=== PATIENT | female | born 1960 | race Caucasian/White ===

== ENCOUNTER 2020-03-29 18:20 | Outpatient (REF) | payer OTHER, SELFPAY ==
[2020-03-29 18:40] LABS: Estmated Average Glucose 209; Hemoglobin A1C 8.9 % (4.0-6.0)
[2020-03-29 18:46] LABS: Chol HDL Ratio 7.18 mg/dL (0.0-4.40); Cholesterol 244 mg/dL (0-200); Glucose 227 mg/dL (65-115); HDL Cholesterol 34 mg/dL (60-100); Triglycerides 501 mg/dL (0-150)
[2020-03-29 19:06] LABS: LDL Cholesterol Direct 136 mg/dL (0-100)
== END 2020-03-29 18:21 | disposition home or self-care (01) ==
LOC: LAB 18:20
PROVIDERS: Family Provider Family Medicine; PCP Family Medicine
DX: Z01.89 Encounter for other specified special examinations (principal)
CPT/HCPCS: 80061; 82947; 83036; 83721

== ENCOUNTER 2022-12-06 08:06 | Outpatient (CLI) | payer OTHER, SELFPAY ==
--- NOTE | 2022-12-06 08:52 | XR_ITS ---
WS: [id number] XR hip LT 2-3V wo/w pel* [id number] REASON FOR EXAM: BILATERAL CHRONIC HIP PAIN FINDINGS: No fracture or focal bone lesion. No soft tissue abnormality. Mild/moderate joint space narrowing with mild subchondral sclerosis and osteophytosis of the acetabul um and femoral head and neck junction. In retrospect similar possibly more severe findings in the right hip. XR/XR hip LT 2-3V wo/w pel* [id number] IMPRESSION: Moderate osteoarthritis of the left left hip.
== END 2022-12-06 08:07 | disposition home or self-care (01) ==
PROVIDERS: PCP Family Medicine; Visit Provider Family Medicine
DX: M25.551 Pain in right hip (principal); G89.29 Other chronic pain; M16.12 Unilateral primary osteoarthritis, left hip
CPT/HCPCS: 73502

== ENCOUNTER 2022-12-13 06:00 | Outpatient (RCR) | payer OTHER, SELFPAY | END 2022-12-28 23:59 | disposition home or self-care (01) | LOC: SPT 06:00 | PROVIDERS: PCP Family Medicine; Visit Provider Family Medicine | DX: M25.551 Pain in right hip (principal); M25.552 Pain in left hip | CPT/HCPCS: 97110; 97162 ==

== ENCOUNTER 2022-12-29 06:00 | Outpatient (RCR) | payer OTHER, SELFPAY | END 2023-01-11 23:59 | disposition home or self-care (01) | LOC: SPT 06:00 | PROVIDERS: PCP Family Medicine; Visit Provider Family Medicine | DX: M25.551 Pain in right hip (principal); M25.552 Pain in left hip; G89.29 Other chronic pain | CPT/HCPCS: 97110 ==

== ENCOUNTER 2023-06-07 18:21 | Emergency (ER) | payer OTHER, SELFPAY ==
[2023-06-07 18:23] VITALS: BP 161/91; PULSE 100; RESP 12; TEMP 36.6; O2SAT 95; BMI 44.4
[2023-06-07 18:51] LABS: Glucose Point of Care 261 mg/dL (70-110)
--- NOTE | 2023-06-07 19:16 | CTR_ITS ---
PROCEDURE INFORMATION: Exam: CT Head Without Contrast Exam date and time: 06/07/2023 8:25 PM Age: 62 years old Clinical indication: Dizziness; Additional info: Sudden onset dizziness, CHRISTIANSON, elevated BP TECHNIQUE: Imaging protocol: Computed tomography of the head without contrast. Radiation optimization: All CT scans at this facility use at least one of these dose optimization techniques: automated exposure control; mA and/or kV adjustment per patient size (includes targeted exams where dose is matched to clinical indication); or iterative reconstruction. REPORTING DATA: Count of CT and Cardiac NM exams in prior 12 months: This patient has received 0 known CTs and 0 known cardiac nuclear medicine studies in the 12 months prior to the current study. COMPARISON: No relevant prior studies available. RADIATION DOSE METRICS: Total DLP (mGy-cm): 1073.6 FINDINGS: Brain: Mild diffuse cortical volume loss. Mild hypodensities in supratentorial periventricular and subcortical white matter, consistent with microangiopathy. No intracranial hemorrhage. Cerebral ventricles: No ventriculomegaly. Paranasal sinuses: Visualized sinuses are unremarkable. No fluid levels. Mastoid air cells: Visualized mastoid air cells are well aerated. Bones/joints: Unremarkable. No acute fracture. Soft tissues: Unremarkable. Vasculature: No hyperdense artery. CT/CT head wo con* [id number] IMPRESSION: No acute intracranial abnormality.
--- NOTE | 2023-06-07 19:19 | W.ED.GENADLT ---
HPI - General Adult General: Chief complaint: General Medical Stated complaint: high bp Time Seen by Provider: 06/07/23 18:51 History of Present Illness: 62yo female presents with sudden onset dizziness that occurred at 1630 while she was getting ready for work. Patient is unable to verbalize whether the room is spinning or she is spinning. Reports that she now has a headache and it is to the front of her head. Patient states that she does have a history of headaches, but this is not the typical placement for it. She also stated that her blood pressure was quite elevated. Patient denies any recent illness, cough, congestion, difficulty breathing, shortness of breath, chest pain Associated symptoms: Reports headache(s) and nausea; Deny chest pain or dyspnea Review of Systems Const: Denies: fever(s), chills or body aches ENMT: Denies: throat pain Card: Denies: chest pain Resp: Denies: dyspnea GI: Reports: nausea; Denies: abdominal pain : Denies: difficulty voiding or dysuria Musc: Denies: neck pain Neuro: Reports: headache(s) and dizziness Physical Exam Const: COMMON NORMALS: patient oriented x3 and alert GENERAL APPEARANCE: cooperative ORIENTATION/CONSCIOUSNESS: Yes awake OTHER: Patient is sitting upright in a recliner in no acute distress. She is able to give history with no difficulty. No family is at bedside HENMT: COMMON NORMALS: normocephalic, atraumatic, external ears normal and EAC's normal HEAD & SCALP: normocephalic and atraumatic EXTERNAL EAR: Yes external ears normal EXTERNAL AUDITORY CANAL: EAC's normal MOUTH: Normal oral and palatal mucosa present THROAT: posterior oropharynx normal Eye: COMMON NORMALS: Equal, round and reactive pupils present and EOMs intact bilaterally PUPIL: Yes Equal, round and reactive pupils present EOM: Yes EOM abnormal Neck/C-Spine: COMMON NORMALS: full ROM Chest: CHEST: Yes Symmetrical chest wall rise Resp: COMMON NORMALS: normal respiratory effort and clear to auscultation bilaterally EFFORT & INSPECTION: No respiratory distress AUSCULTATION: clear to auscultation bilaterally Cardio: COMMON NORMALS: regular rate and regular rhythm RATE: regular rate RHYTHM: regular rhythm Extremity: COMMON NORMALS: full ROM Neuro: COMMON NORMALS: patient oriented x3, CN's II-XII intact bilaterally and moves all extremities SENSORIUM/ORIENTATION: Yes alert COORDINATION/BALANCE: [id number] test normal and Romberg test negative SPEECH: speech normal GAIT: Yes Normal gait present SENSORY EXAM: Yes extremities MOTOR EXAM: 5/5 motor strength present throughout and Pronator motor function not present COORDINATION: [id number] test normal and Romberg test normal Psych: COMMON NORMALS: mental status grossly normal and cooperative ATTITUDE: Yes calm Skin: COMMON NORMALS: no rashes or lesions noted GENERAL SKIN EXAM: no rashes or lesions noted Course Vital Signs: Vital signs: Vital Signs Temperature 97.8 F 06/07/23 18:23 Pulse Rate 93 06/08/23 00:19 Respiratory Rate 18 06/08/23 00:19 Blood Pressure 169/87 06/08/23 00:19 Pulse Oximetry 94 06/08/23 00:19 Oxygen Delivery Me thod Room Air 06/07/23 22:31 MDM - General Adult Medical Decision Making 62yo female here with headache and dizziness that started at 1630. Patient is unable to determine if the world is spinning or if she is spinning. Patient did have elevated blood pressure and pulse prior to arrival to the emergency department. She states that she has been taking her medications as they are prescribed. She denies any fall, trauma, injury, recent illness, fever, chills, body aches, any other concerns at this time. Patient is nontoxic in appearance. Vital signs are stable. CBC is grossly unremarkable. CMP with a glucose of 259, otherwise unremarkable. PT PTT are in the normal range. UA with 1+ protein, 4+ glucose, trace leukocytes and 0-[address] head with no acute intracranial abnormalities noted. Patient did receive ondansetron while in the emergency department and had no further nausea/vomiting. She also received 1 L normal saline bolus and meclizine. She reported her dizziness had resolved, but her headache persisted. She had no further improvement in her headache after receiving ketorolac, but states that is not unusual for her when she does get a headache. Discussed with patient the importance of continuing to monitor her symptoms. Meclizine was sent to patient's pharmacy for the dizziness. Encourage patient to follow-up with her primary care, call in 1 to 2 days with an update of symptoms and to schedule a recheck. Advised return to the emergency department if any rapid worsening symptoms and as needed. Differential Diagnosis CVA, dehydration, migraine, hyperglycemia Lab Data 06/07/23 19:22 06/07/23 19:[address] 06/07/23 19:16 IMPRESSION: No acute intracranial abnormality. Laboratory Results WBC 6.5 10^3/uL (4.0-10.0) 06/07/23 19:22 RBC 4.51 10^6/uL (4.1-5.3) 06/07/23 19:22 Hgb 13.9 g/dL (11.5-15.3) 06/07/23 19:22 Hct 41.8 % (37.0-47.0) 06/07/23 19:22 MCV 92.7 fl (81-99) 06/07/23 19:22 MCH 30.8 pg (28.0-34.0) 06/07/23 19:22 MCHC 33.3 g/dL (30.0-36.0) 06/07/23 19:22 RDW 13.0 % (12.1-15.1) 06/07/23 19:22 Plt Count 303 10^3/cmm (130-400) 06/07/23 19:22 MPV 9.6 fL (7.4-10.4) 06/07/23 19:22 Neut % (Auto) 74.6 % 06/07/23 19:22 Lymph % (Auto) 16.4 % 06/07/23 19:22 [place] % (Auto) 5.4 % 06/07/23 19:22 Eos % (Auto) 2.6 % 06/07/23 19:22 Baso % (Auto) 0.5 % 06/07/23 19:22 Neut # (Auto) 4.81 10^3/uL (1.8-7.7) 06/07/23 19:22 Lymph # (Auto) 1.1 10^3/uL (0.8-4.8) 06/07/23 19:22 [place] # (Auto) 0.4 10^3/uL (0.2-0.9) 06/07/23 19:22 Eos # (Auto) 0.2 10^3/uL (0.0-0.8) 06/07/23 19:22 Baso # (Auto) 0.0 10^3/uL (0.0-0.1) 06/07/23 19:22 Nucleated RBC % (auto) 0 % 06/07/23 19:22 Nucleated RBCs # 0.0 /100WBC 06/07/23 19:22 PT 12.70 SECONDS (12.1-14.9) 06/07/23 19:22 INR 0.92 (0.8-1.2) 06/07/23 19:22 APTT 24.4 SECONDS (23.9-36.7) 06/07/23 19:22 Sodium 136 mmol/L (136-145) 06/07/23 19:22 Potassium 3.8 mmol/L (3.5-5.1) 06/07/23 19:22 Chloride 98 mmol/L (98-107) 06/07/23 19:22 Carbon Dioxide 25 mmol/L (22-29) 06/07/23 19:22 Anion Gap 16.8 (5-19) 06/07/23 19:22 BUN 19 mg/dL (8-23) 06/07/23 19:22 Creatinine 0.6 mg/dL (0.5-0.9) 06/07/23 19:22 GFR Calculation 101.6 mL/min (90-130) 06/07/23 19:22 Glucose 259 mg/dL (65-115) H 06/07/23 19:22 POC Glucose 261 mg/dL (70-110) H 06/07/23 18:32 Calculated Osmolality 293 mOsm/kg (285-295) 06/07/23 19:22 Calcium 8.9 mg/dL (8.5-10.5) 06/07/23 19:22 Total Bilirubin 0.2 mg/dL (0.15-1.2) 06/07/23 19:22 AST 26 U/L (0-32) 06/07/23 19:22 ALT 37 U/L (0-33) H 06/07/23 19:22 Alkaline Phosphatase 82 U/L (35-105) 06/07/23 19:22 Total Protein 7.5 g/dL (6.6-8.7) 06/07/23 19:22 Albumin 4.1 g/dL (3.5-5.2) 06/07/23 19:22 Globulin 3.4 g/dL (1.3-4.6) 06/07/23 19:22 Urine Color Light yellow (Yellow) 06/07/23 20:13 Urine Appearance Clear (CLEAR) 06/07/23 20:13 Urine pH 5 (5-7) 06/07/23 20:13 Ur Specific [place] 1.020 (1.005-1.030) 06/07/23 20:13 Urine Protein 1+ (Negative) H 06/07/23 20:13 Urine Glucose (UA) 4+ (Normal) H 06/07/23 20:13 Urine Ketones 1+ (Negative) H 06/07/23 20:13 Urine Blood Neg (Negative) 06/07/23 20:13 Urine Nitrate Negative (Negative) 06/07/23 20:13 Urine Bilirubin Neg (Negative) 06/07/23 20:13 Urine Urobilinogen Neg mg/dL (Negative) 06/07/23 20:13 Ur Leukocyte Esterase Trace (Negative) H 06/07/23 20:13 Urine RBC None /hpf (0-2) 06/07/23 20:13 Urine WBC 0-4 /hpf (0-5) H 06/07/23 20:13 Ur Squamous Epith Cells 0-4 /hpf (0-5) H 06/07/23 20:13 Amorphous Sediment Not Reportable 06/07/23 20:13 Urine Bacteria Trace /hpf (NONE) 06/07/23 20:13 Discharge Plan Discharge Patient Disposition: Home Clinical Impression: Dizziness Headache Qualifiers: Headache type: unspecified Headache chronicity pattern: acute headache Intractability: not intractable Qualified Code(s): R51.9 - Headache, unspecified Condition: Stable Prescriptions: New meclizine 25 mg tablet 12.5 mg PO TID PRN (Reason: dizziness) Qty: 20 0RF Discharge Orders: Discharge ED (Routine); Ordered 06/07/23 Ordered By: Baltazar Galvan Referrals: Timothy Leong MD [Primary Care Provider] - Discharge Diet: Usual diet Discharge Activity: Increase activity as tolerated Patient Instructions: Acute Headache (ED), Dizziness (ED) Activity Restrictions/Additional Instructions: Follow-up with your doctor, call in the next 1 to 2 days with an update of symptoms and to schedule a recheck Return to the emergency department if any rapid worsening symptoms and as needed Coding Level of Care Code ED 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
[2023-06-07 19:31] LABS: Basophils % 0.5 %; Eosinophils # 0.2 10^3/uL (0.0-0.8); Eosinophils % 2.6 %; Hematocrit 41.8 % (37.0-47.0); Hemoglobin 13.9 g/dL (11.5-15.3); Lymphocytes # 1.1 10^3/uL (0.8-4.8); Lymphocytes % 16.4 %; Mean Corpuscular HGB Conc 33.3 g/dL (30.0-36.0); Mean Corpuscular Hemoglobin 30.8 pg (28.0-34.0); Mean Corpuscular Volume 92.7 fl (81-99); Mean Platelet Volume 9.6 fL (7.4-10.4); Monocytes # 0.4 10^3/uL (0.2-0.9); Monocytes % 5.4 %; Neutrophils # 4.81 10^3/uL (1.8-7.7); Neutrophils % 74.6 %; Nucleated Red Blood Cells % 0 %; Platelet Count 303 10^3/cmm (130-400); Red Blood Count 4.51 10^6/uL (4.1-5.3); White Blood Count 6.5 10^3/uL (4.0-10.0)
[2023-06-07 19:43] LABS: INR 0.92 (0.8-1.2)
[2023-06-07 19:45] LABS: Partial Thromboplastin Time 24.4 SECONDS (23.9-36.7)
[2023-06-07 19:48] LABS: Alanine Aminotransferase 37 U/L (0-33); Albumin Level 4.1 g/dL (3.5-5.2); Alkaline Phosphatase 82 U/L (35-105); Anion Gap 16.8 (5-19); Aspartate Amino Transferase 26 U/L (0-32); Blood Urea Nitrogen 19 mg/dL (8-23); Calcium 8.9 mg/dL (8.5-10.5); Carbon Dioxide 25 mmol/L (22-29); Chloride 98 mmol/L (98-107); Creatinine Clr Calc Pharmacy 155.1134; Globulin 3.4 g/dL (1.3-4.6); Glomerular Filtration Rate 101.6 mL/min (90-130); Glucose 259 mg/dL (65-115); Osmolality Calculated 293 mOsm/kg (285-295); Potassium 3.8 mmol/L (3.5-5.1); Sodium 136 mmol/L (136-145); Total Bilirubin 0.2 mg/dL (0.15-1.2); Total Protein 7.5 g/dL (6.6-8.7)
[2023-06-07 20:03] VITALS: BP 155/108; PULSE 102; RESP 22; O2SAT 97
[2023-06-07] MEDS: ondansetron 2 mg/ML SDV 2 mL 4 MG IVP (20:05)
--- NOTE | 2023-06-07 20:05 | PC.NURSE ---
CHU PUSHED BY DEVIN Smith RN
--- NOTE | 2023-06-07 20:18 | PC.NURSE ---
PT STATES AFTER ZOFRAN DIZZINESS AND NAUSEA WENT AWAY. PT IS SITTING IN VF 4 WITH BP CUFF, PULSE OX AND CARDIAC LEADS.
[2023-06-07 20:44] LABS: Add Urine Microscopic? YES; Bacteria Urine TRACE /hpf; Bilirubin Urine Neg (Negative); Blood Urine Neg (Negative); Glucose Urine UA 4+ (Normal); Ketones Urine 1+ (Negative); Leukocyte Esterase Urine Trace (Negative); Nitrate Urine Negative (Negative); Protein Urine 1+ (Negative); Squamous Epithelial Cell Urine 0-4 /hpf (0-5); Urine Appearance Clear (CLEAR); Urine Color Light yellow (Yellow); Urobilinogen Urine Neg (Negative); WBC Urine 0-4 /hpf (0-5); pH Urine 5 (5-7)
[2023-06-07 20:45] LABS: Add Urine Culture? No
[2023-06-07 21:30] VITALS: BP 154/92; PULSE 95; O2SAT 96
[2023-06-07] MEDS: meclizine 25 mg tablet PO (21:53)
[2023-06-07] MEDS: sodium chloride 0.9% 1,000 ML 999 ML IV (21:54)
[2023-06-07 22:31] VITALS: BP 150/103; PULSE 100; O2SAT 95
[2023-06-07] MEDS: ketorolac 30 mg/mL INJ 15 MG IVP (23:31)
[2023-06-08 00:19] VITALS: BP 169/87; PULSE 93; RESP 18; O2SAT 94
== END 2023-06-08 00:19 | disposition home or self-care (01) ==
PROVIDERS: Emergency Provider Nurse Practitioner; PCP Family Medicine
DX: R51.9 Headache, unspecified (principal); R42 Dizziness and giddiness
CPT/HCPCS: 12345; 36416; 70450; 80053; 81001; 82962; 85025; 85610; 85730; 96361; 96374; 96375; 99285; J1885; J2405; J7030; J8597